=== PATIENT | female | born 1960 | race Caucasian/White ===

== ENCOUNTER → 2017-03-26 | Outpatient (CLI) | payer BC ==
[~2017-03-26] VITALS: Ht 158.8 cm; Wt 65.8 kg
[~2017-03-26] MED LIST: EFFEXOR XR75 MG PO; GLUCOPHAGE500 MG PO; LIPITOR20 MG PO; TRICOR145 MG PO
[2017-03-26 12:29] LABS: POINT-OF-CARE METER ID UU14107333
== END | disposition home or self-care (01) ==
LOC: AMB 11:44
PROVIDERS: Internal Medicine
DX: Z12.11 Encounter for screening for malignant neoplasm of colon (principal); D12.0 Benign neoplasm of cecum; K63.5 Polyp of colon; K62.89 Other specified diseases of anus and rectum; K64.8 Other hemorrhoids; E78.1 Pure hyperglyceridemia; R73.03 Prediabetes; F17.200 Nicotine dependence, unspecified, uncomplicated; Z88.1 Allergy status to other antibiotic agents; Z83.3 Family history of diabetes mellitus
CPT/HCPCS: 82948; 88305; J2250